=== PATIENT | female | born 2005 | race Caucasian/White ===

== ENCOUNTER 2025-01-25 17:06 | Emergency (ER) | payer BC, SELFPAY ==
[2025-01-25 17:10] VITALS: BP 115/80
--- NOTE | 2025-01-25 18:22 | ED.GENMED ---
History of Present Illness
General
Chief Complaint: Abdominal Pain
Source: patient
Exam Limitations: none
Time Seen by Provider: 01/25/25 17:38
Nursing documentation reviewed up to this point in time: agreed with
History of Present Illness
History of Present Illness:
Patient is a 20-year-old female who presents to the emergency department for evaluation of abdominal pain. Patient states that last night she noticed a 'spasm' in her upper abdomen which persisted for a few hours. Fortunately�she was able to sleep
without difficulty. However�this morning she describes a 'tearing pain 'on the left side of her abdomen which has since completely resolved. She felt that pain was exacerbated while urinating although denies any true dysuria or hematuria. She
denies any associated nausea, vomiting, fever, or chills. She denies any diarrhea or constipation.
Patient was seen at urgent care yesterday for right upper back discomfort where they felt it was likely muscular. She states that this pain has also since resolved.
Patient denies any chest pain or shortness of breath. No lower leg pain or swelling. No recent travel or recent surgeries. No personal or family history of blood clots or clotting disorders. No exogenous hormone use.
Review of Systems
Review of Systems
Allergies reviewed?: Yes
All Other Systems: ROS reviewed and negative except as documented in HPI and ROS
Phy Exam
Physical Exam
Physical Exam:
Vitals: Patient's vital signs are stable. Afebrile
General: Patient is very well-appearing, in no apparent distress
Skin: Warm and dry, no rashes or lesions
Head: Normocephalic, atraumatic
Eyes: Sclera nonicteric. EOMs intact. No nystagmus.
Throat: Protecting airway
Neck: Normal ROM, no cervical spine tenderness, no meningismus
Cardiac: Regular rate and rhythm, no murmurs.
Pulm: Normal respiratory effort, no wheezes, rales, rhonchi heard on exam
.
Abdomen: Abdomen soft. No reproducible tenderness. No pulsatile masses. CVA tenderness or rash
Extremities: No evidence of cyanosis or edema. Palpable DP pulses bilaterally. Negative Homans
Neuro: AAOx3. Grossly intact.
Psychiatric: Normal affect.
Course
Orders/Labs/Results
Orders:
Orders
01/25/25 18:10
Test Result ONCE
01/25/25 18:39
Complete Blood Count/With Diff Urgent
Comprehensive Metabolic Panel Urgent
HCG, Serum Qualitative Screen Urgent
Lipase Urgent
Urinalysis Reflex To Culture Urgent
Date Specimen was Collected: 01/25/25
Time Specimen was Collected: 18:34
01/25/25 19:09
0.9% Sodium Chloride 500 ml [Nss] 500 ml IV BOLUS
01/25/25 20:08
CR Chest - 2 Views Urgent
Comment:
Reason For Exam: upper back pain
01/25/25 20:31
D-Dimer Urgent
Abnormal Lab Results
01/25/25
18:39
RBC 3.87 L 10^6/uL
(4.20-5.40)
Hct 34.8 L %
(37.0-47.0)
MPV 11.6 H fL
(7.4-10.4)
01/25/25 18:39
01/25/25 18:39
Vital Signs
Initial and Last Documented VS:
Initial Vital Signs
Temp Pulse Resp BP Pulse Ox
98.2 F 91 17 115/80 99
01/25/25 17:10 01/25/25 17:10 01/25/25 17:10 01/25/25 17:10 01/25/25 17:10
Last Documented Vital Signs
Temp Pulse Resp BP Pulse Ox
98.2 F 78 18 120/67 100
01/25/25 17:10 01/25/25 21:08 01/25/25 21:08 01/25/25 21:08 01/25/25 21:08
MDM/Problems Addressed
Differential Diagnosis Includes:
Not limited to: Gastritis, GERD, abdominal muscular spasm, UTI, biliary colic, renal colic, etc.
MDM/Problems Addressed:
20 year old female presenting with multiple symptoms including severe left sided abdominal pain as well as right upper back pain yesterday which has since resolved completely. No associated vomiting, fevers, dysuria, or chest pain. She is
asymptomatic on arrival. Vitals stable - afebrile. Physical exam as above. Cardio/pulmonary assessment unremarkable. Abdomen soft and completely nontender - specifically no tenderness at McBurney's point and no pulsatile mass palpated. No lower
extremity pain or swelling. She has palpable and equal radial pulses. Differential very broad. Will start with laboratory analysis and UA. Patient asymptomatic and declines analgesia at this time.
Update: Labs reviewed. CBC/CMP without clinically significant abnormalities. UA shows no evidence of infection or RBCs. Do not suspect intra-abdominal infectious process given patient afebrile with no leukocytosis and benign abdominal exam. History
and exam not consistent with ovarian etiology. CXR was obtained without evidence of widened mediastinum along with negative D-dimer and equal BP bilaterally - making suspicion for aortic dissection very unlikely. Patient is PERC negative with
otherwise very low suspicion for PE
Ultimately- workup in ED negative. Patient has remained asymptomatic. Unsure exact etiology of symptoms, possible muscular component. However - feel stable for discharge home with outpatient f/u with PCP. Patient and patients mom comfortable with
plan. Case discussed with attending physician.
Chronic conditions affecting care:
N/A
Acute Exacerbation and/or Progression of Chronic Illness:
N/A
*Radiology
Radiology exam reviewed: preliminary read by ED provider (chest xray reviewed by me - no acute abnormalities, no widened mediastinum)
*Pulse Oximetry
Patient hypoxic: no (99% on room air)
*EKG
Interpreted by ED Provider?: NA
*Dialer Interpretation
Rate: Dialer- N/A
*Critical Care Note
Total Time (30-74mins, 75-104mins- exclusive of procedures): Not Applicable
ED Attending Note
-
Portions of this chart may have been created with voice recognition software.� Occasional wrong word or��sound alike� substitutions may have occurred due to the inherent limitations of voice recognition software.
Discharge Plan
Departure
Patient Disposition: Home (Routine Discharge)
Date of Disposition: 01/25/25
Time of Disposition: 20:58
Patient with high blood pressure during this ER visit?: No
Condition: Good
Covid-19: Not Applicable
Discharge Problem:
Abdominal pain
Instructions: Back Pain, Abdominal Pain
Referrals:
Nico Beverly DO [Family Provider, [facility]] - Follow up in 5-7 days
Activity Restrictions/Additional Instructions:
RETURN TO THE EMERGENCY DEPARTMENT WITH ANY FEVER, SEVERE ABDOMINAL PAIN OR BACK PAIN, DIZZINESS/LIGHTHEADEDNESS, INTRACTABLE NAUSEA/VOMITING, LACK OF APPETITE, WORSENING OF CURRENT SYMPTOMS, OR ANY OTHER CONCERN
- As discussed your lab work and urinalysis showed no acute abnormalities. We are unsure the exact etiology of your symptoms today.
- Stay well-hydrated. I would recommend a bland diet over the next few days and advance as tolerated.
- Follow-up with your primary care in a few days for further evaluation/management and to ensure that symptoms are improving
Monitor your symptoms closely and return to the emergency department with any acute worsening/new symptoms or any other concerns
Interventions
Interventions:
*Risk Screen - Suicide Last Done: 01/25/25 17:11
*General Assessment Last Done: 01/25/25 17:11
*Neglect/Abuse Screening Last Done: 01/25/25 17:11
*ED- Fall Risk Assessment Last Done: 01/25/25 21:08
*ED COVID-19 Vaccine History Last Done: 01/25/25 17:11
*Nursing Disposition Last Done: 01/25/25 21:08
CB-Jkkqqd-Phqmqtfamm Assessment Last Done: 01/25/25 19:49
Discharge Date and Time
Discharge Date/Time: 01/25/25 21:09
Print Language: URDU
[2025-01-25 18:40] VITALS: BMI 18.2
[2025-01-25 19:01] LABS: % Basophils 0.7 % (0-2); % Eosinophils 1.1 % (0-6); % Immature Granulocytes 0.1 % (0-0.5); % Lymphocytes 33.6 % (20.5-51.1); % Monocytes 5.1 % (1.7-9.3); % Neutrophils 59.4 % (42.2-75.2); Absolute Basophils 0.1 10^3/uL (0-0.2); Absolute Eosinophils 0.1 10^3/uL (0-0.7); Absolute Lymphocytes 2.6 10^3/uL (1.2-3.4); Absolute Monocytes 0.4 10^3/uL (0.1-0.6); Absolute Neutrophils 4.5 10^3/uL (1.4-6.5); HCG, Serum Qualitative Screen Negative; Hematocrit 34.8 % (37.0-47.0); Mean Corp Hgb Conc. 34.5 g/dL (33.0-37.0); Mean Corpuscular Volume 89.9 fL (81.0-99.0); Mean Platelet Volume 11.6 fL (7.4-10.4); Nucleated Red Blood Cells % 0 %; Platelet Count 195 10^3/uL (130-400); Red Blood Cell Count 3.87 10^6/uL (4.20-5.40); Red Cell Dist. Width 11.9 % (11.5-14.5); White Blood Cell Count 7.6 10^3/uL (4.8-10.8)
[2025-01-25 19:02] LABS: Urine Albumin Negative (Neg - Trace); Urine Bilirubin Negative (Negative); Urine Character Clear (Clear); Urine Color Yellow; Urine Glucose Negative (Negative); Urine Ketone Negative (Negative); Urine Leukocyte Negative (Negative); Urine Nitrite Negative (Negative); Urine Occult Blood Negative (Negative); Urine Urobilinogen Negative (Neg - 1+); Urine pH 6.5 (5.0-9.0)
[2025-01-25 19:10] LABS: ALT (SGPT) 15 U/L (0-35); AST (SGOT) 22 U/L (14-36); Albumin 4.6 g/dl (3.5-5.0); Alkaline Phosphatase 49 U/L (38-126); Blood Urea Nitrogen 12 mg/dl (7-17); Calcium 9.7 mg/dl (8.4-10.2); Carbon Dioxide 25 mmol/L (22-30); Chloride 107 mmol/L (98-107); Estimated Creatinine Clearance 91 ml/min; Glucose 88 mg/dl (70-99); Lipase 41 U/L (23-300); Potassium 4.6 mmol/L (3.5-5.1); Sodium 139 mmol/L (135-145); Total Bilirubin 0.7 mg/dl (0.2-1.3); Total Protein 7.5 g/dl (6.3-8.2); eGFR > 60.00
[2025-01-25] MEDS: NSS 500 IV (19:25)
[2025-01-25 20:58] LABS: D-Dimer < 0.27 ug/mlFEU (0.00-0.50)
[2025-01-25 21:08] VITALS: BP 120/67
== END 2025-01-25 21:09 | disposition home or self-care (01) ==
LOC: EMR 17:06
PROVIDERS: Physician Assistant; EMERGENCY PHYSICIAN Emergency Medicine; FAMILY PHYSICIAN Family Medicine
DX: R10.9 Unspecified abdominal pain (principal)
CPT/HCPCS: 99284; 71046; 80053; 81003; 83690; 84703; 85025; 85379